=== PATIENT | female | born 1975 | race American Indian/Alaskan Native ===

== ENCOUNTER 2016-10-23 08:42 | Emergency (ER) | payer MEDICAID ==
[2016-10-23 09:17] VITALS: BP 103/69
--- NOTE | 2016-10-23 09:38 | Emergency Department Report ---
Chief Complaint: Abdominal Pain Stated Complaint: ABD PAIN Time Seen by Provider: 10/23/16 09:33 - HPI History of Present Illness: Patient reports low abdominal and back pain, fever and N/V that started three days ago. Patient recently had a hysterectomy September 22, 2016. - ROS Review of Systems: all other systems are unremarkable except for documentation in HPI - Exam Vital Signs: Vital Signs 10/23/16 09:13 Temperature 99.3 F Pulse Rate 89 Respiratory 18 Rate Blood Pressure 103/69 Physical Exam: Gen: well developed and nourished, NAD Abd: soft, nondistended, bowel sounds present, tenderness to palpation suprapubic, RLQ and LLQ, no rebound, guarding or rigid Back: Full ROM, tenderness to palpation R & L CVA, no muscle spasm, paraspinal, vertebrae or rash noted MSE screening note: Focused history and physical exam performed. Due to findings the following was ordered: laboratory studies ordered ED Disposition for MSE Condition: Stable Instructions: Abdominal Pain (ED)
[2016-10-23 10:09] LABS: Basophils % (Auto) 0.3 % (0.0-1.8); Eosinophils % (Auto) 0.3 % (0.0-4.3); Hematocrit 37.6 % (30.3-42.9); Mean Corpuscular HGB Conc 32 % (30-34); Mean Corpuscular Volume 78 fl (79-97); Platelet Count 132 K/mm3 (140-440); Red Blood Count 4.79 M/mm3 (3.65-5.03); Red Cell Distribution Width 16.5 % (13.2-15.2); White Blood Count 3.5 K/mm3 (4.5-11.0)
[2016-10-23 10:15] LABS: Mean Corpuscular Hemoglobin 25 pg (28-32)
[2016-10-23 10:24] LABS: Alanine Aminotransferase 42 units/L (7-56); Albumin 3.5 g/dL (3.9-5); Albumin/Globulin Ratio 0.9 %; Alkaline Phosphatase 90 units/L (35-129); Anion Gap 18 mmol/L; Bilirubin,Total 0.2 mg/dL (0.1-1.2); Blood Urea Nitrogen 9 mg/dL (7-17); Calcium 8.2 mg/dL (8.4-10.2); Carbon Dioxide 25 mmol/L (22-30); Chloride 90.8 mmol/L (98-107); Glucose 336 mg/dL (65-100); Lipase 107 units/L (13-60); Potassium 3.7 mmol/L (3.6-5.0); Sodium 130 mmol/L (137-145); Total Protein 7.3 g/dL (6.3-8.2)
[2016-10-23 10:41] LABS: Bacteria,Urine 2+ /HPF (Negative); Bilirubin,Urine NEG (Negative); Blood,Urine MOD (Negative); Ketones,Urine 20 mg/dL (Negative); Leukocyte Esterase,Urine LG (Negative); Mucus,Urine FEW /HPF; Nitrite,Urine NEG (Negative)
--- NOTE | 2016-10-24 23:31 | ED Elopement Review ---
ED Pt Elopement review - Results review Lab results: Laboratory Tests 10/23/16 10/23/16 10/23/16 09:48 09:48 09:48 WBC 3.5 L RBC 4.79 Hgb 12.0 Hct 37.6 MCV 78 L MCH 25 L MCHC 32 RDW 16.5 H Plt Count 132 L Lymph % (Auto) 29.7 [place] % (Auto) 3.3 Eos % (Auto) 0.3 Baso % (Auto) 0.3 Lymph # 1.0 L [place] # 0.1 Eos # 0.0 Baso # 0.0 Seg Neutrophils % 66.4 Seg Neutrophils # 2.3 Sodium 130 L Potassium 3.7 Chloride 90.8 L Carbon Dioxide 25 Anion Gap 18 BUN 9 Creatinine 1.0 Estimated GFR > 60 BUN/Creatinine Ratio 9.00 Glucose 336 H Calcium 8.2 L Total Bilirubin 0.2 AST 40 ALT 42 Alkaline Phosphatase 90 Total Protein 7.3 Albumin 3.5 L Albumin/Globulin Ratio 0.9 Lipase 107 H HCG, Quant < 2 Urine Color Urine Turbidity Urine pH Ur Specific [place] Urine Protein Urine Glucose (UA) Urine Ketones Urine Blood Urine Nitrite Urine Bilirubin Urine Urobilinogen Ur Leukocyte Esterase Urine WBC (Auto) Urine RBC (Auto) U Epithel Cells (Auto) Urine Bacteria (Auto) Urine WBC Clumps Ur Transition Epith Cell Urine Mucus 10/23/16 10:15 WBC RBC Hgb Hct MCV MCH MCHC RDW Plt Count Lymph % (Auto) [place] % (Auto) Eos % (Auto) Baso % (Auto) Lymph # [place] # Eos # Baso # Seg Neutrophils % Seg Neutrophils # Sodium Potassium Chloride Carbon Dioxide Anion Gap BUN Creatinine Estimated GFR BUN/Creatinine Ratio Glucose Calcium Total Bilirubin AST ALT Alkaline Phosphatase Total Protein Albumin Albumin/Globulin Ratio Lipase HCG, Quant Urine Color Yellow Urine Turbidity Cloudy Urine pH 6.0 Ur Specific [place] 1.022 Urine Protein 100 mg/dl Urine Glucose (UA) >=500 Urine Ketones 20 Urine Blood Mod Urine Nitrite Neg Urine Bilirubin Neg Urine Urobilinogen 2.0 Ur Leukocyte Esterase Lg Urine WBC (Auto) 83.0 H Urine RBC (Auto) 12.0 U Epithel Cells (Auto) 7.0 Urine Bacteria (Auto) 2+ Urine WBC Clumps Few Ur Transition Epith Cell < 1 Urine Mucus Few - Call Back decision Pt Call Back Decision: Call pt to return to ED [facility] (needs a ct)
== END 2016-10-23 21:00 | disposition left against medical advice (07) ==
LOC: ED 08:42
DX: R10.9 Unspecified abdominal pain (principal); M54.9 Dorsalgia, unspecified; R50.9 Fever, unspecified; R11.2 Nausea with vomiting, unspecified; Z53.21 Procedure and treatment not carried out due to patient leaving prior to being seen by health care provider
CPT/HCPCS: 36415; 80053; 81001; 83690; 84702; 85025

== ENCOUNTER 2017-02-05 14:05 | Emergency (ER) | payer MEDICAID ==
--- NOTE | 2017-02-05 15:30 | Emergency Department Report ---
Entered by ELISHA RAYGOZA, acting as scribe for ALESSIA KINSEY PA. Chief Complaint: Abdominal Pain Stated Complaint: ABDOMINAL PAIN/BACK PAIN Time Seen by Provider: 02/05/17 15:22 - HPI History of Present Illness: Patient presents to the ED c/o low abdominal pain and low back pain that began 2 days ago. Reports nausea and vomiting. Denies dysuria, urgency, frequency, fever, and chills. Pt is actively vomiting while being seen provider. - ROS Review of Systems: All system are negative unless stated in HPI above. - Exam Vital Signs: Vital Signs 02/05/17 15:11 Temperature 98.1 F Pulse Rate 99 H Respiratory 18 Rate Blood Pressure 151/107 O2 Sat by Pulse 100 Oximetry Physical Exam: General: alert and oriented, anxious and crying, nontoxic Abdomen: TTP on pelvic area, normal bowel sounds in all quadrants MSE screening note: Focused history and physical exam performed. Due to findings the following was ordered: ED Medical Decision Making - Medical Decision Making Medical decision making: Patient seen by provider in triage area. Appropriate protocol activated and patient to main ED to be seen by physician. ED Disposition for MSE Condition: Stable Instructions: Abdominal Pain (ED) This documentation as recorded by the scribe,ELISHA RAYGOZA,accurately reflects the service I personally performed and the decisions made by me,ALESSIA KINSEY PA.
[2017-02-05 15:48] LABS: Bilirubin,Urine NEG (Negative); Blood,Urine SM (Negative); Ketones,Urine NEG (Negative); Leukocyte Esterase,Urine MOD (Negative); Mucus,Urine FEW /HPF; Nitrite,Urine NEG (Negative); Protein,Urine <15 mg/dL mg/dL (Negative); Urobilinogen,Urine < 2.0 mg/dL (<2.0)
[2017-02-05 15:55] LABS: Hematocrit 39.8 % (30.3-42.9); Mean Corpuscular HGB Conc 33 % (30-34); Mean Corpuscular Volume 79 fl (79-97); Platelet Count 265 K/mm3 (140-440); Red Blood Count 5.05 M/mm3 (3.65-5.03); White Blood Count 6.3 K/mm3 (4.5-11.0)
[2017-02-05 15:56] LABS: Mean Corpuscular Hemoglobin 26 pg (28-32); Red Cell Distribution Width 22.2 % (13.2-15.2)
[2017-02-05 16:08] LABS: Alanine Aminotransferase 462 units/L (7-56); Albumin/Globulin Ratio 0.7 %; Alkaline Phosphatase 301 units/L (35-129); Anion Gap 16 mmol/L; Bilirubin,Total 0.8 mg/dL (0.1-1.2); Blood Urea Nitrogen 5 mg/dL (7-17); Carbon Dioxide 23 mmol/L (22-30); Glucose 408 mg/dL (65-100); Lipase 55 units/L (13-60); Potassium 4.6 mmol/L (3.6-5.0); Sodium 129 mmol/L (137-145); Total Protein 7.6 g/dL (6.3-8.2)
[2017-02-05 16:31] LABS: Blastocytes % (Manual) 0 %
[2017-02-05 16:36] LABS: Anisocytosis 1+; Diff Status Complete
[2017-02-05] MEDS ORDERED: NORMODYNE IV ONE (19:28)
[2017-02-05] MEDS ORDERED: ZOFRAN IV ONE (19:28)
[2017-02-05] MEDS ORDERED: NACL 0.9% 1000 ML 1,000 ML IV ONE (19:28)
[2017-02-05] MEDS ORDERED: MORPHINE IV ONE (20:55)
--- NOTE | 2017-02-05 21:32 | Admit Criteria Form ---
Admission Criteria Documentation: HYPONATREMIA; HYPERNATREMIA; HYPOKALEMIA; HYPERKALEMIA; HYPOCALCEMIA; HYPERCALCEMIA Clinical Indications for Inpatient Care (Place 'X' for any and all applicable criteria): Ongoing inpatient care may be indicated for ANY ONE of the following [G](1)(2)(3 )(5): [X ]I. Hyponatremia with ANY ONE of the following: [X ]a) Sodium less than 130 mEq/L (mmol/L) (new) (6)(22) [ ]b) Sodium less than 135 mEq/L (mmol/L) with ANY ONE of the following: [ ]i) Severe medical etiology requiring inpatient management (eg, heart failure, hypovolemia) [ ]ii) Altered mental status [ ]iii) Seizures [ ]II. Hypernatremia with ANY ONE of the following: [ ]a) Sodium greater than 155 mEq/L (mmol/L) [ ]b) Sodium greater than 150 mEq/L (mmol/L) with ANY ONE of the following: [ ] i) Altered mental status [ ]ii) Seizures [ ]iii) Severe medical etiology (eg, hypovolemia, diabetes insipidus) [ ]iv) Severe weakness [ ]v) Severe medical etiology (eg, hemolysis, infection, drug overdose) [ ]III. Hypokalemia with ANY ONE of the following: [ ]a) Potassium less than 2.5 mEq/L (mmol/L) despite outpatient and emergency treatment [ ]b) Potassium less than 3.0 mEq/L (mmol/L) with ANY ONE of the following: [ ]i) Weakness [ ]ii) Cardiac abnormality (eg, arrhythmia, conduction disturbance) [ ]iii) Cardiac ischemia [ ]iv) Ileus [ ]v) Ongoing medical cause requiring inpatient management. ( e.g., acute renal wasting, SIADH) [ ]vi) Other severe symptoms [ ] IV. Hyperkalemia with ANY ONE of the following: [ ]a) Potassium greater than 6.5 mEq/L (mmol/L) [ ]b) Potassium greater than 5 mEq/L (mmol/L) with ANY ONE of the following: [ ]i) Severe ECG findings [H] [ ]ii) Acute worsening of renal failure (creatinine greater than 2.5 mg/dL (221 micromoles/L) or significant elevation for age and size) [ ] V. Hypocalcemia with ANY ONE of the following: [ ]a) Calcium less than 7 mg/dL (1.75 mmol/L) despite outpatient and emergency treatment(19) [ ]b) Calcium less than 8 mg/dL (2 mmol/L) with significant symptoms or findings; examples include: [ ]i) Cardiac abnormality (eg, arrhythmia or conduction disturbance) [ ]ii) Altered mental status [ ]iii) Seizures [ ]iv) Breathing difficulty [ ]v) Muscle spasms [ ]. Hypercalcemia with ANY ONE of the following: [ ]a) Calcium greater than 14 mg/dL (3.5 mmol/L) [ ]b) Calcium greater than 12 mg/dL (3 mmol/L) with ANY ONE of the following: [ ]i) Significant dehydration or hypovolemia as indicated by ANY ONE of the following(2): [ ]1. Clinically significant dehydration as indicated by ANY ONE of the following: [ ]A. Acute loss of weight from baseline (5% of body weight in adults, 9% in pediatric patients) [ ]B. Hemodynamic instability [ ]C. Acute renal failure [ ]D. Serum sodium greater than 150 mEq/L (mmol/L) [ ]2) Dehydration that is persistent indicated by ALL of the following: [ ]A. Oral rehydration therapy not tolerated or insufficient to adequately correct dehydration [ ]B. Appropriate intravenous treatment (eg, fluids ) does not readily correct dehydration ie, after 12 to 24 hours of treatment) [ ]ii) Significant symptoms or findings; examples include: [ ]1) Altered mental status [ ]2) Cardiac abnormality (eg, arrhythmia, conduction disturbance) [ ]3) Cardiac abnormality (eg, arrhythmia, conduction disturbance) The original [email or web address] content created by [employer] has been revised. The portions of the content which have been revised are identified through the use of italic text or in bold, and [facility] has neither reviewed nor approved the modified material. All other unmodified content is copyright [email or web address] Please see references footnoted in the original [email or web address] edition 2016
[2017-02-06] VITALS: BP 135/98
[2017-02-06] MEDS ORDERED: MORPHINE IV ONE
--- NOTE | 2017-02-06 00:10 | Emergency Department Report ---
HPI - General Chief Complaint: Abdominal Pain Time Seen by Provider: 02/05/17 15:21 - HPI HPI: The patient is a 41-year-old female with a history of hysterectomy, whom presents for evaluation of abdominal pain. The patient reports suprapubic and lower abdominal pain for the past 2 days, 10/10 in severity, cramping in quality , constant since onset, and associated with bilateral lower back pain, also 10/ 10 in severity, exacerbated with movement of the lower back, sharp in quality. The patient denies fever, vomiting, diarrhea, blood in the stool, dark tarry stool, dysuria, hematuria, flank pain, vaginal discharge, inability to pass flatus, trauma to the back, fall, saddle anesthesia, paresthesias or tingling in the legs, leg weakness, urine or bowel incontinence or retention, difficulty ambulating, or other focal neurological deficits. ED Past Medical Hx - Past Medical History Previous Medical History?: Yes Hx Hypertension: Yes (x 7 years; Denies chest pain) Hx Congestive Heart Failure: No Hx Diabetes: Yes Hx Renal Disease: No Hx Seizures: No Hx Psychiatric Treatment: Yes Hx Asthma: Yes (childhood) Hx COPD: No Hx HIV: No Additional medical history: Vaginal delivery x 2, one - Surgical History Past Surgical History?: Yes Hx Cholecystectomy: Yes Additional Surgical History: , Hysterectomy - Social History Smoking Status: Current Every Day Smoker Substance Use Type: Alcohol, Prescribed - Medications Home Medications: Home Medications Medication Instructions Recorded Confirmed Last Taken Type Lantus Solostar 30 units SQ HS 08/06/15 09/22/16 09/21/16 History Lisinopril/Hydrochlorothiazide 1 tab PO DAILY 08/06/15 09/22/16 09/22/16 History [Zestoretic 20-12.5 mg] ALPRAZolam [Xanax TAB] 2 mg PO BID PRN 07/01/16 09/22/16 09/22/16 History Zolpidem [Ambien] 10 mg PO QHS 07/01/16 09/22/16 09/21/16 History Ibuprofen [Motrin] 800 mg PO Q8HR PRN #30 tablet 09/23/16 Unknown Rx oxyCODONE /ACETAMINOPHEN [Percocet 1 tab PO Q6H PRN #30 tablet 09/23/16 Unknown Rx 5/325 mg] Ondansetron [Zofran TAB] 4 mg PO Q8HR PRN #15 tablet 02/06/17 Unknown Rx traMADol [Ultram 50 MG tab] 50 mg PO Q6HR PRN #15 tablet 02/06/17 Unknown Rx ED Review of Systems ROS: Stated complaint: ABDOMINAL PAIN/BACK PAIN Other details as noted in HPI Constitutional: denies: fever ENT: denies: throat or neck pain Respiratory: denies: cough, shortness of breath Cardiovascular: denies: chest pain Endocrine: denies unexplained weight loss or gain Gastrointestinal: reports abdominal pain, nausea Genitourinary: denies: dysuria Musculoskeletal: reports back pain denies: leg swelling Skin: denies: rash Neurological: denies: headache Hematological/Lymphatic: denies: easy bleeding or easy bruising Psych: denies sadness or hopelessness Physical Exam - Physical Exam Vital Signs: Vital Signs 02/05/17 02/05/17 02/06/17 15:11 19:45 00:00 Temperature 98.1 F Pulse Rate 99 H 88 84 Respiratory 18 20 18 Rate Blood Pressure 151/107 Blood Pressure 136/87 135/98 [Left] O2 Sat by Pulse 100 100 100 Oximetry Physical Exam: General: well-nourished, well-developed, no acute distress Head: Normocephalic, atraumatic Eyes: normal sclera ENT: Mucous membranes are pale and dry Neck: trachea midline, neck supple, No neck stiffness, no cervical adenopathy Respiratory: Breath sounds equal bilaterally, no wheezing, rales, or rhonchi Cardio: S1 and S2 present, no murmurs, rubs, gallops, capillary refill is delayed Abdomen: Normoactive bowel sounds, soft abdomen, suprapubic and LLQ tenderness to palpation present, no rigidity, no guarding or rebound tenderness, no pain in McBurney's point, Hamm sign is negative, there is no epigastric, LUQ, or right upper quadrant tenderness whatsoever Chest WALL/Back: No tenderness to palpation of the chest wall, no CVA tenderness with percussion Musc: Inspection of the back is unremarkable, there is no redness, swelling, fluctuance, crepitus, tenderness to superficial palpation of the bilateral upper lumbar paraspinal musculature present, no thoracic or lumbar midline spinous process tenderness, full passive range of motion at the hips intact, no spinous step-off or obvious deformity, ipsi-lateral and contralateral straight leg raise tests are negative. On extremity testing, compartments are soft and pliable, no obvious gross motor strength deficit, 5+ motor strength, including extension of the great toe bilaterally, no muscular atrophy, spasticity, fasciculations, or clonus, no obvious gross sensation deficit including web space between 1st and 2nd toes, reflexes 2+ & symmetric on DTR testing at the knee and ankle joints, distal pulses intact. Skin: No rash Neuro: no facial drooping, normal speech Psych: Normal affect ED Course Vital Signs 02/05/17 02/05/17 02/06/17 15:11 19:45 00:00 Temperature 98.1 F Pulse Rate 99 H 88 84 Respiratory 18 20 18 Rate Blood Pressure 151/107 Blood Pressure 136/87 135/98 [Left] O2 Sat by Pulse 100 100 100 Oximetry ED Medical Decision Making - Lab Data Result diagrams: 02/05/17 15:31 02/05/17 15:31 - Medical Decision Making The patient was seen and examined by myself. The patient is placed on a curriculum development specialist and continuous pulse ox. On initial evaluation, the patient was found to be in no distress. Evaluation orders are placed. IV access is established and the patient is given 1 L normal saline fluid bolus and Zofran for nausea, and IV morphine for pain. Lab results revealed mildly elevated AST, ALT, alkaline phosphatase, with normal total bilirubin, normal WBC, normal lipase, and normal urinalysis. Additionally glucose level is elevated at 400, although with normal bicarbonate and anion gap, not consistent with DKA. The patient is given IV insulin for treatment of hyperglycemia. The patient was reevaluated and reported that her pain improved but persisted. She is given a second dose of IV morphine for pain, which further improved her pain. The patient is reevaluated and she remains with no pain in the right upper quadrant, right flank, epigastric abdomen, or upper abdomen whatsoever, and mildly elevated LFTs do not correlate with exam findings. As the patient is afebrile without any upper abdominal a right flank tenderness whatsoever, imaging of the hepatobiliary system is not indicated at this time. Repeat Accu- Chek reveals that the patient's blood sugar has not decreased to 100. The patient is stable for discharge with outpatient follow-up. The patient is given follow-up and return instructions. The patient is discharged in stable condition. Critical care attestation.: If time is entered above; I have spent that time in minutes in the direct care of this critically ill patient, excluding procedure time. ED Disposition Clinical Impression: Abdominal pain, acute, bilateral lower quadrant, Acute bilateral low back pain without sciatica, Hyperglycemia, Dehydration, Chronic hypertension Disposition: DISCHARGED TO HOME OR SELFCARE Is pt being admited?: No Does the pt Need Aspirin: No Condition: Stable Instructions: Abdominal Pain (ED), Diabetic Hyperglycemia (ED), Low Back Strain (ED), Dehydration (ED), Hypertension (ED) Prescriptions: Ondansetron [Zofran TAB] 4 mg PO Q8HR PRN #15 tablet PRN Reason: Nausea traMADol [Ultram 50 MG tab] 50 mg PO Q6HR PRN #15 tablet PRN Reason: Pain Referrals: MARINA LANGE MD [Primary Care Provider] - 3-5 Days Time of Disposition: 00:04
== END 2017-02-06 00:35 | disposition home or self-care (01) ==
LOC: ED 14:05
DX: E86.0 Dehydration (principal); E11.65 Type 2 diabetes mellitus with hyperglycemia; R10.31 Right lower quadrant pain; R10.32 Left lower quadrant pain; M54.5 Low back pain; I10 Essential (primary) hypertension; I50.9 Heart failure, unspecified; J45.909 Unspecified asthma, uncomplicated; F17.200 Nicotine dependence, unspecified, uncomplicated
CPT/HCPCS: 36415; 80053; 81001; 82962; 83690; 85007; 85025; 96361; 96374; 96375; 96376; 99284; J2270; J2405; J7030; J1815